=== PATIENT | female | born 1990 | race Caucasian/White ===

== ENCOUNTER 2016-07-14 07:43 | Inpatient (IN) | payer MEDICAID ==
[~2016-07-14] VITALS: Ht 154.9 cm; Wt 67.1 kg
[2016-07-14 07:46] VITALS: Ht 154.9 cm; Wt 67.1 kg
[2016-07-14 07:54] VITALS: BP 121/76; PULSE 96; RESP 18
[2016-07-14] MEDS ORDERED: PRENAT PO (07:57)
--- NOTE | 2016-07-14 08:08 | TRIAGE ---
OB Triage Datetime Report Generated by CPN: 07/14/2016 08:08 Datetime: 07/14/2016 07:51 Vaginal Exam Dilatation (cms): 3.0 Effacement (%): 80 Station: -2 Exam By: Margi RN Datetime: 07/14/2016 07:50 Assessment Type: Triage Maternal Assessment Level of Consciousness: Fully Conscious DTR's/Clonus: DTRs 2+; No Clonus Headache: Denies Blurred Vision: No Respiratory Effort: Unlabored; Regular Rhythm; Equal Expansion Breath Sounds, Left: Clear and Equal Breath Sounds, Right: Clear and Equal Nausea/Vomiting: Denies RUQ Epigastric Pain: Denies Lower Extremities Edema: None Degree: None Upper Extremities Edema: None Degree: None Facial Edema: None Fall Risk Assessment History of Falling: (0) No Secondary Diagnosis: (0) No Ambulatory Aid: (0) Bedrest/Nurse Assist IV Therapy: (0) No Gait: (0) Normal/Bedrest/Immobile Mental Status: (0) Oriented to Own Ability Fall Score: 0 Fall Risk Score Definition: No Risk: No action required Datetime: 07/14/2016 07:45 Time of Arrival: 07/14/2016 07:40 EGA: 39.2 Arrived By: Wheelchair Arrived From: Emergency Dept Chief Complaint: UC Movement: Present Contractions: Regular Time Contractions Began: 07/14/2016 03:00 Rupture of Membranes: Denies Vaginal Bleeding: Normal Show Vaginal Discharge: Present Recent Sexual Intercouse: Denies Abdominal Trauma: Not Applicable Patient Complaints: Contractions Initial Plan: NST, VE Presentation 'A': Cephalic
[2016-07-14] MEDS ORDERED: CARBOPROST 250 MCG INJ IM PRN ×2 (08:30→22:30)
[2016-07-14] MEDS ORDERED: OXYTOCIN 30 UNITS/LR 500 ML IV SCH ×2 (08:30)
[2016-07-14] MEDS ORDERED: IBUPROFEN 600 MG TAB PO PRN (08:30)
[2016-07-14] MEDS ORDERED: LIDOCAINE 1% (MPF) 30 ML INJ INJ PRN (08:30)
[2016-07-14] MEDS ORDERED: LACTATED RINGER'S 1,000 ML IV PRN (08:30)
[2016-07-14] MEDS ORDERED: BUTORPHANOL 2 MG INJ IV PRN (08:30)
[2016-07-14] MEDS ORDERED: OXYTOCIN 30 UNITS/LR 500 ML IV PRN ×2 (08:30→22:30)
[2016-07-14] MEDS ORDERED: METHYLERGONOVINE 0.2 MG INJ IM PRN ×2 (08:30→22:30)
[2016-07-14] MEDS ORDERED: MISOPROSTOL 200 MCG TAB PR PRN ×2 (08:30→22:30)
[2016-07-14] MEDS: LACTATED RINGER'S 1,000 ML IV SCH ×3 (09:07→17:55)
[2016-07-14 09:24] LABS: ADD SCAN DIFF NO
[2016-07-14 09:29] LABS: BASOPHILS % 0.2 % (0.0-2.0); EOSINOPHILS # 0.1 10^3/ul (0.0-0.5); EOSINOPHILS % 0.4 % (0.0-7.0); HEMATOCRIT 37.5 % (37.0-47.0); HEMOGLOBIN 12.4 g/dl (12.0-16.0); LYMPHOCYTES # 2.5 10^3/ul (0.8-2.9); LYMPHOCYTES % 19.8 % (15.0-51.0); MEAN CORPUSCULAR HEMOGLOBIN 31.3 pg (29.0-33.0); MEAN CORPUSCULAR HGB CONC 33.1 g/dl (32.0-37.0); MEAN CORPUSCULAR VOLUME 94.7 fl (82.0-101.0); MEAN PLATELET VOLUME 12.3 fl (7.4-10.4); MONOCYTE # 0.9 10^3/ul (0.3-0.9); NEUTROPHIL # 9.2 10^3/ul (1.6-7.5); NEUTROPHILS % 72.1 % (39.0-77.0); PLATELET COUNT 230 10^3/UL (140-415); RED BLOOD COUNT 3.96 10^6/ul (4.20-5.40); RED CELL DISTRIBUTION WIDTH 13.6 % (11.5-14.5); WHITE BLOOD COUNT 12.7 10^3/ul (4.8-10.8)
[2016-07-14] MEDS ORDERED: FENTAnyl 2MCG/ML-ROPIV 0.2% 100 ML ONE (10:13)
[2016-07-14] MEDS ORDERED: DIPHENHYDRAMINE 50 MG INJ IV PRN (10:30)
[2016-07-14] MEDS ORDERED: NALOXONE (0.4 MG/ML) INJ IV PRN (10:30)
[2016-07-14] MEDS ORDERED: FENTAnyl 2MCG/ML-ROPIV 0.2% 100 ML BAG EPI SCH (10:30)
[2016-07-14] MEDS ORDERED: ONDANSETRON 4 MG INJ IV PRN (10:30)
[2016-07-14 11:07] LABS: INR 0.95; PROTIME 12.7 Sec (12.2-14.2)
[2016-07-14] MEDS: OXYTOCIN 30 UNITS/LR 500 ML IV SCH ×2 (18:15→20:12)
--- NOTE | 2016-07-14 18:52 | HP ---
Date/Time of Note Date/Time of Note DATE: 07/14/16 TIME: 18:50 OB - History Hx of Present Chief Complaint: contractions Estimated Due Date: Jul 19, 2016 : 2 Para: 1 Spontaneous : 0 Therapeutic : 0 Care: Good Care Ultrasounds: Normal mid trimester US Obstetrical Complications: None Medical Complications: None Past Family/Social History * Past Medical, Surgical, Family and Obstetric Histories reviewed from chart. GBS Status: Negative OB Admission Exam Vital Signs Vital Signs Vital Signs Date Time Temp Pulse Resp B/P Pulse Ox O2 Delivery O2 Flow Rate FiO2 07/14/16 07:54 98.4 96 18 121/76 Room Air Physical Exam HEENT: WNL Heart: Rhythm Normal Lungs: Clear Abdomen: WNL Extremities: Normal Cervical Dilatation: 5cm Effacement: 50% Station: -1 Membranes: Intact Heart Rate: 130's Accelerations: Accelerations Present Decelerations: No Decelerations Varibility: Moderate Last 72 hours Lab Results CBC & BMP 07/14/16 08:30 OB Assessment/Plan Reason for admission: active labor Plan: Expectant Management MAHNAZ WHITAKER MD Jul 14, 2016 18:52
--- NOTE | 2016-07-14 20:12 | LDN ---
Date/Time of Note Date/Time of Note DATE: 07/14/16 TIME: 20:10 Delivery Summary Weeks of Gestation Placenta Delivered: Spontaneously Meconium: none Episiotomy: No Perineal laceration: 0 Laceration repair: Vaginal laceration repaired with 3-0 Vicryl. Anesthesia type: Epidural Estimated blood loss: 200 Sponge & Needle done & correct: Yes All needle counts correct: Yes Any foreign bodies felt in the: No Problems: Infant Delivery Information Sex Infant Sex: male Apgars 1 Minute: 9 5 Minute: 9 Suctioning Nose & mouth suctioned at fernanda: Yes Delee suction performed: No Umbilical Cord Umbilical cord with: 3 Vessels Cord presentations: no nuchal cord Cord Blood was obtained: Yes Mother & Baby Disposition Disposition Mom & Baby to Maternity; Good: Yes MAHNAZ WHITAKER MD Jul 14, 2016 20:12
[2016-07-14] MEDS: LACTATED RINGER'S 1,000 ML IV* SCH (22:01)
[2016-07-14] MEDS ORDERED: ACETAMINOPHEN/CODEINE #3 TAB PO PRN (22:30)
[2016-07-14] MEDS ORDERED: BENZOCAINE 20% 56 ML SPRAY TOP PRN (22:30)
[2016-07-14] MEDS ORDERED: LANOLIN 7 GM TUBE TOP PRN (22:30)
[2016-07-14] MEDS ORDERED: ACETAMINOPHEN 325 MG TAB PO PRN (22:30)
[2016-07-14] MEDS ORDERED: DIBUCAINE 1% 30 GM OINT PR PRN (22:30)
[2016-07-14] MEDS ORDERED: WITCH HAZEL/GLYCERIN PAD PR PRN (22:30)
[2016-07-14] MEDS: IBUPROFEN 600 MG TAB PO SCH (23:28)
[2016-07-15 03:12] VITALS: BP 124/65; PULSE 72; RESP 18
[2016-07-15] MEDS: IBUPROFEN 600 MG TAB PO SCH ×3 (05:18→18:27)
[2016-07-15] MEDS: LACTATED RINGER'S 1,000 ML IV* SCH ×3 (06:01→21:39)
[2016-07-15 07:35] LABS: ADD SCAN DIFF NO
[2016-07-15 07:38] LABS: ABNORMAL IP MESSAGE 1; BASOPHILS % 0.2 % (0.0-2.0); EOSINOPHILS # 0.1 10^3/ul (0.0-0.5); EOSINOPHILS % 0.3 % (0.0-7.0); HEMATOCRIT 31.1 % (37.0-47.0); HEMOGLOBIN 10.1 g/dl (12.0-16.0); LYMPHOCYTES # 2.8 10^3/ul (0.8-2.9); LYMPHOCYTES % 14.8 % (15.0-51.0); MEAN CORPUSCULAR HEMOGLOBIN 31.2 pg (29.0-33.0); MEAN CORPUSCULAR HGB CONC 32.5 g/dl (32.0-37.0); MEAN PLATELET VOLUME 12.2 fl (7.4-10.4); MONOCYTE # 1.6 10^3/ul (0.3-0.9); MONOCYTES % 8.4 % (0.0-11.0); NEUTROPHIL # 14.4 10^3/ul (1.6-7.5); NEUTROPHILS % 75.8 % (39.0-77.0); PLATELET COUNT 203 10^3/UL (140-415); RED BLOOD COUNT 3.24 10^6/ul (4.20-5.40); RED CELL DISTRIBUTION WIDTH 13.7 % (11.5-14.5)
[2016-07-15 08:00] VITALS: BP 113/55; PULSE 98; RESP 20
[2016-07-15] MEDS: SENNA/DOCUSATE NA (8.6MG/50MG) TAB PO SCH ×2 (10:59→21:38)
--- NOTE | 2016-07-15 11:16 | QN ---
Documentation Comment No complaint Afebrile VSS Fundus Firm PPD #1 Stable Continue post care. MAHNAZ WHITAKER MD Jul 15, 2016 11:16
[2016-07-15 13:27] LABS: ADD UMIC YES; URINE BILIRUBIN (Dip) NEGATIVE (NEGATIVE); URINE BLOOD (Dip) 3+ (NEGATIVE); URINE COLOR LT. YELLOW (YELLOW); URINE GLUCOSE (Dip) NEGATIVE (NEGATIVE); URINE KETONES (Dip) NEGATIVE (NEGATIVE); URINE LEUKOCYTE ESTERASE (Dip) TRACE (NEGATIVE); URINE NITRITE (Dip) NEGATIVE (NEGATIVE); URINE TOTAL PROTEIN (Dip) NEGATIVE (NEGATIVE); URINE UROBILINOGEN (Dip) 0.2 E.U./dL (0.1-1.0)
[2016-07-15 13:39] LABS: MUCUS,URINE FEW; SQUAMOUS EPITHELIAL CELL,UR FEW; URINE RBCS 25-50 /HPF (0)
[2016-07-15 16:00] VITALS: BP 118/59; PULSE 94; RESP 20
[2016-07-15 20:15] VITALS: BP 104/58; PULSE 113; RESP 20
[2016-07-16] MEDS: IBUPROFEN 600 MG TAB PO SCH ×3 (00:27→12:04)
[2016-07-16 04:00] VITALS: BP 106/60; PULSE 106; RESP 20
[2016-07-16] MEDS: LACTATED RINGER'S 1,000 ML IV* SCH (05:59)
[2016-07-16 07:53] LABS: ADD SCAN DIFF NO
[2016-07-16 07:57] LABS: BASOPHILS % 0.3 % (0.0-2.0); EOSINOPHILS # 0.1 10^3/ul (0.0-0.5); EOSINOPHILS % 1.1 % (0.0-7.0); HEMOGLOBIN 9.7 g/dl (12.0-16.0); LYMPHOCYTES # 3.3 10^3/ul (0.8-2.9); LYMPHOCYTES % 26.7 % (15.0-51.0); MEAN CORPUSCULAR HEMOGLOBIN 31.3 pg (29.0-33.0); MEAN CORPUSCULAR HGB CONC 32.3 g/dl (32.0-37.0); MEAN CORPUSCULAR VOLUME 96.8 fl (82.0-101.0); MEAN PLATELET VOLUME 11.8 fl (7.4-10.4); MONOCYTE # 0.9 10^3/ul (0.3-0.9); MONOCYTES % 7.5 % (0.0-11.0); NEUTROPHIL # 7.9 10^3/ul (1.6-7.5); NEUTROPHILS % 63.9 % (39.0-77.0); PLATELET COUNT 212 10^3/UL (140-415); WHITE BLOOD COUNT 12.3 10^3/ul (4.8-10.8)
[2016-07-16] MEDS ORDERED: DIPHTH/TET/ACEL PERTUSS (ADULT) 0.5 ML VIAL IM* ONE (09:00)
[2016-07-16 09:03] VITALS: BP 114/57; PULSE 84; RESP 14
[2016-07-16] MEDS: SENNA/DOCUSATE NA (8.6MG/50MG) TAB PO SCH (10:00)
--- NOTE | 2016-07-16 12:46 | DS ---
Date/Time of Note Date/Time of Note DATE: 07/16/16 TIME: 12:45 Obstetrical Discharge Record Final Diagnosis Final Diagnosis: Term delivered Vaginal Delivery Obstetrical Delivery: Spontaneous, Laceration, Repaired Condition on Discharge Physical Assessment Voiding: Yes Bowel Movement: Yes Breast: Soft, non-tender Fundus: Firm Calf Tenderness: No Patient Condition: Stable MAHNAZ WHITAKER MD Jul 16, 2016 12:46
== END 2016-07-16 15:56 | disposition home or self-care (01) | DRG 775 ==
LOC: L-D 07:43 → OBT 07:43 → L-D 08:32 → PP1 21:53
PROVIDERS: ADMIT Obstetrics & Gynecology; ATTEND Obstetrics & Gynecology
PROC: 10E0XZZ Delivery of Products of Conception, External Approach (ICD-10-PCS; principal; 2016-07-14)
PROC: 0UQGXZZ Repair Vagina, External Approach (ICD-10-PCS; 2016-07-14)
PROC: 3E0234Z Introduction of Serum, Toxoid and Vaccine into Muscle, Percutaneous Approach (ICD-10-PCS; 2016-07-16)
DX: O71.4 Obstetric high vaginal laceration alone (principal); Z3A.39 39 weeks gestation of pregnancy; Z23 Encounter for immunization; Z37.0 Single live birth
CPT/HCPCS: 62319; 81001; 81003; 85025; 85610; 85730; 86592; 86900; 86901; 87086; 87340; 90715; G0463; J2590; J3010; J7120

== ENCOUNTER 2016-07-24 22:00 | Emergency (ER) | payer SELFPAY ==
[~2016-07-24 22:00] MED LIST: PRENAT PO
== END 2016-07-24 23:37 | disposition left against medical advice (07) ==
LOC: E/R 22:00
DX: Z53.21 Procedure and treatment not carried out due to patient leaving prior to being seen by health care provider (principal)

== ENCOUNTER 2018-08-28 14:34 | Emergency (ER) | payer MEDICAID ==
[~2018-08-28] VITALS: Ht 157.5 cm; Wt 58.0 kg
[2018-08-28 14:44] VITALS: BP 144/70; PULSE 92; RESP 19; Ht 157.5 cm; Wt 58.0 kg
[2018-08-28] MEDS ORDERED: LORAZEPAM 0.5 MG TAB PO ONE (15:30)
[2018-08-28] MEDS ORDERED: IBUPROFEN 600 MG TAB PO ONE (15:30)
[2018-08-28] MEDS ORDERED: IBUP-1542 PO (15:49)
--- NOTE | 2018-08-28 15:51 | ERD ---
ER Documentation Chief Complaint Chief Complaint left arm pain ; headache and sob started 3 hours ago HPI 28-year-old female presents with left upper arm pain for the last 3 hours. She also has bitemporal headache. She has sensation of shortness of breath as well. She has any hemoptysis, syncope, calf swelling, additional symptoms. She denies chest pain. She does admit to significant stress. ROS All systems reviewed and are negative except as per history of present illness. Medications Home Meds Active Scripts Ibuprofen* (Motrin*) 600 Mg Tab, 600 MG PO Q6, #15 TAB Prov:FRANCOIS YARBROUGH MD 08/28/18 Reported Medications Multivit/Min/Fol Ac/Iron/Pren* ( S*) 1 Tab Tab, 1 TAB PO DAILY, TAB 07/14/16 Allergies Allergies: Coded Allergies: No Known Allergy (Unverified , 07/14/16) PMhx/Soc Medical and Surgical Hx: pt denies Medical Hx, pt denies Surgical Hx Hx Alcohol Use: No Hx Substance Use: No Hx Tobacco Use: No Smoking Status: Never smoker FmHx Family History: No diabetes, No coronary disease, No other Physical Exam Vitals Vital Signs Date Temp Pulse Resp B/P (MAP) Pulse Ox O2 O2 Flow FiO2 Time Delivery Rate 08/28/18 99.2 92 19 144/70 99 14:44 (94) Physical Exam Const: No acute distress. Tearful. Head: Atraumatic Eyes: Normal Conjunctiva ENT: Normal External Ears, Nose and Mouth. Neck: Full range of motion. No meningismus. Resp: Clear to auscultation bilaterally Cardio: Regular rate and rhythm, no murmurs Abd: Soft, non tender, non distended. Normal bowel sounds Skin: No petechiae or rashes Back: No midline or flank tenderness Ext: No cyanosis, or edema Neur: Awake and alert Psych: Normal Mood and Affect. Admits to stress. Denies homicidal or suicidal ideations. Results 24 hrs Laboratory Tests Test 08/28/18 15:16 08/28/18 15:17 POC Beta HCG, Qualitative NEGATIVE Bedside Urine pH (LAB) 6.0 Bedside Urine Protein (LAB) Negative Bedside Urine Glucose (UA) Negative Bedside Urine Ketones (LAB) Negative Bedside Urine Blood 1+ Bedside Urine Nitrite (LAB) Negative Bedside Urine Leukocyte Esterase (L Negative Current Medications Medications Dose Sig/Flores Start Time Status Last (Trade) Ordered Route PRN Stop Time Admin Dose Reason Admin Ibuprofen 600 mg ONCE ONCE 08/28/18 DC 08/28/18 (Motrin) PO 15:30 08/28/18 15:13 15:31 Lorazepam 0.5 mg ONCE ONCE 08/28/18 DC 08/28/18 (Ativan) PO 15:30 08/28/18 15:13 15:31 Procedures/MDM EKG: Rate/Rhythm: Normal Sinus Rhythm. Rate of 76 QRS, ST, T-waves: No changes consistent w/ acute ischemia Impression: No evidence of ischemia or arrhythmia Chest X-ray 1V Interpreted by me: Soft Tissue: No acute abnormalities Bones: No acute abnormalities Mediastinum/Cardiac Silhouette/Lungs: No acute abnormalities. Impression- normal 1 view chest x-ray Patient was given Ativan 0.5 mg and ibuprofen. Urine shows no significant acute abnormalities and hCG negative. Patient presents with left arm pain of uncertain etiology. His pain is nontraumatic. She has additional somatic complaints is bitemporal headache, sensation of shortness of breath with essentially normal exam. Current signs or symptoms do not suggest PE, neurologic deficit, cranial bleeding, concerning signs or symptoms to suggest emergent causes of presenting complaints. She may be having stress type reaction. Will treat with ibuprofen, further observation at home and return precautions. The patient was stable with no new complaints during the ER course. Clinically, there is no current evidence to suggest meningitis, sepsis, acute abdomen, pneumonia, stroke, acute coronary syndrome, pulmonary embolism, aortic dissection or any other emergent condition appearing to require further evaluation or hospitalization. Patient counseled regarding my diagnostic impression and care plan. Prior to discharge all questions answered. Pt agrees with treatment plan and understands strict return precautions. Pt is instructed to follow up with primary care provider within 24-48 hours. Precautionary instructions provided including instructions to return to the ER if not improving or for any worsening or changing symptoms or concerns. Disclaimer: Inadvertent spelling and grammatical errors are likely due to EHR/dictation software use and do not reflect on the overall quality of patient care. Also, please note that the electronic time recorded on this note does not necessarily reflect the actual time of the patient encounter. Departure Diagnosis: Primary Impression: Pain of left arm Condition: Stable Patient Instructions: Stress: Causes and Effects, Anxiety Reaction, Symptoms With Uncertain Cause Referrals: NO PRIMARY,CARE PHYSICIAN (PCP) Additional Instructions: Examines normal hoy. Cheque otro vez con moody doctor primario en el proximo norman or regresa para mas o nueva simptomas. FRANCOIS YARBROUGH MD Aug 28, 2018 15:51
== END 2018-08-28 16:08 | disposition home or self-care (01) ==
LOC: FTE 14:34
DX: M79.602 Pain in left arm (principal)
CPT/HCPCS: 71045; 81003; 81025; 93005; Z7502; Z7610